=== PATIENT | female | born 2000 | race Caucasian/White ===

== ENCOUNTER 2021-03-03 18:47 | Emergency (ER) | payer BC ==
[~2021-03-03] VITALS: Ht 157.5 cm; Wt 81.8 kg
[2021-03-03 21:42] LABS: STREP SCREEN NEGATIVE
[2021-03-03 22:11] VITALS: BP 118/65; PULSE 94; TEMP 98.4
== END 2021-03-03 22:11 | disposition home or self-care (01) ==
LOC: COL.ER 18:47
PROVIDERS: Physician Assistant
DX: J06.9 Acute upper respiratory infection, unspecified (principal); Z20.822 Contact with and (suspected) exposure to COVID-19